=== PATIENT | female | born 1960 | race Caucasian/White ===

== ENCOUNTER 2020-10-25 09:57 | Outpatient (REF) | payer OTHER, SELFPAY ==
--- NOTE | 2020-10-25 | MM_ITS ---
EXAMINATION: MM SCREENING DIGITAL BREAST TOMOSYNTHESIS, BILATERAL CLINICAL INFORMATION: Screening. Asymptomatic. The lifetime risk of breast cancer based on the Tyrer-Cuzick Model is 11.1%. COMPARISON: Mammography: May 30, 2018 and March 18, 2017 TECHNIQUE: Digital breast tomosynthesis is performed in both the craniocaudal and mediolateral oblique views along with computer-aided detection (CAD). Synthesized 2D images are generated from the tomosynthesis. FINDINGS: The breasts are heterogeneously dense, which may obscure small masses (ACR BI-RADS breast composition Category c). There are no significant masses, abnormal calcifications, or other abnormalities. MM/MM tomosynthesis screening BI IMPRESSION: There are no significant changes from prior study. ASSESSMENT: BI-RADS 1: Negative RECOMMENDATION: Routine annual mammography screening. This patient's information was entered into a reminder system with a target due date for their next mammogram.
== END 2020-10-25 09:58 | disposition home or self-care (01) ==
LOC: HO.MAMMO 09:57
PROVIDERS: PCP Internal Medicine; Visit Provider Internal Medicine
DX: Z12.31 Encounter for screening mammogram for malignant neoplasm of breast (principal)
CPT/HCPCS: 77063; 77067

== ENCOUNTER 2021-03-01 08:43 | Outpatient (REF) | payer OTHER, SELFPAY ==
[2021-03-01 10:23] LABS: Estimated Average Glucose 140 mg/dL; Hemoglobin A1c % 6.5 %
[2021-03-01 10:37] LABS: Alanine Aminotransferase 27 U/L (0-31); Albumin Level 4.4 g/dL (3.5-5.0); Alkaline Phosphatase 61 U/L (39-117); Anion Gap 13 (12-20); Aspartate Amino Transferase 20 U/L (5-31); Bilirubin Total 0.6 mg/dL (0.0-1.0); Blood Urea Nitrogen 14 mg/dL (9-16); Calcium 9.4 mg/dL (8.4-10.2); Carbon Dioxide 28 mmol/L (22-29); Chloride 103 mmol/L (96-108); Cholesterol 203 mg/dL; Estimated Glomerular Filt Rate > 60; Glucose Fasting 147 mg/dL (60-99); HDL Cholesterol 61 mg/dL; LDL Cholesterol Calculated 104 mg/dl; Potassium 4.5 mmol/L (3.3-5.1); Sodium 139 mmol/L (135-145); Total Protein 7.1 g/dL (6.5-8.0); Triglycerides 191 mg/dL
[2021-03-01 11:16] LABS: Creatinine Urine 89.81 mg/dL; Microalbumin Urine < 5.0 mg/L
== END 2021-03-01 08:44 | disposition home or self-care (01) ==
LOC: HO.LAB 08:43
PROVIDERS: PCP Internal Medicine; Visit Provider Internal Medicine
DX: Z00.00 Encounter for general adult medical examination without abnormal findings (principal); E03.9 Hypothyroidism, unspecified; E11.9 Type 2 diabetes mellitus without complications
CPT/HCPCS: 36415; 80053; 80061; 82043; 83036

== ENCOUNTER 2021-06-07 08:07 | Outpatient (REF) | payer OTHER, SELFPAY ==
[2021-06-07 12:00] LABS: Alanine Aminotransferase 24 U/L (0-31); Albumin Level 4.1 g/dL (3.5-5.0); Alkaline Phosphatase 80 U/L (39-117); Anion Gap 13 (12-20); Aspartate Amino Transferase 19 U/L (5-31); Bilirubin Total 0.6 mg/dL (0.0-1.0); Blood Urea Nitrogen 12 mg/dL (9-16); Calcium 9.2 mg/dL (8.4-10.2); Carbon Dioxide 24 mmol/L (22-29); Chloride 107 mmol/L (96-108); Cholesterol 203 mg/dL; Estimated Glomerular Filt Rate > 60; Glucose Fasting 163 mg/dL (60-99); HDL Cholesterol 51 mg/dL; LDL Cholesterol Calculated 110 mg/dl; Potassium 4.4 mmol/L (3.3-5.1); Rheumatoid Factor < 15.0 IU/mL (<15.0); Sodium 140 mmol/L (135-145); Total Protein 6.8 g/dL (6.5-8.0); Triglycerides 213 mg/dL
[2021-06-07 12:22] LABS: TSH reflex Free T4 0.03 uIU/mL (0.32-4.0); Vitamin D 25-OH Total 27.5 ng/mL (>30)
[2021-06-07 12:25] LABS: Estimated Average Glucose 160 mg/dL; Hemoglobin A1c % 7.2 %
[2021-06-07 12:57] LABS: Free T4 (Free Thyroxine) 1.21 ng/dL (0.71-1.85)
[2021-06-07 12:58] LABS: Erythrocyte Sedimentation Rate 7 MM/HR (0-20)
[2021-06-09 10:02] LABS: Folate 15.6 ng/mL (> or = 4.0); Vitamin B12 843 pg/mL (200-900)
[2021-06-09 16:12] LABS: Cyclic Citrullinated Peptide <16 UNITS
== END 2021-06-07 08:08 | disposition home or self-care (01) ==
LOC: HO.HMGCLDS 08:07
PROVIDERS: PCP Internal Medicine; Visit Provider Internal Medicine
DX: E03.9 Hypothyroidism, unspecified (principal); E11.9 Type 2 diabetes mellitus without complications; E78.5 Hyperlipidemia, unspecified
CPT/HCPCS: 36415; 80053; 80061; 82306; 82607; 82746; 83036; 84439; 84443; 85652; 86200; 86431

== ENCOUNTER 2021-06-20 13:13 | Outpatient (REF) | payer OTHER, SELFPAY ==
[2021-06-24 18:51] LABS: HPV mRNA E6/E7 Detected (Not Detected)
== END 2021-06-20 13:14 | disposition home or self-care (01) ==
LOC: HO.LAB 13:13
PROVIDERS: Visit Provider Internal Medicine
DX: Z12.4 Encounter for screening for malignant neoplasm of cervix (principal); Z11.51 Encounter for screening for human papillomavirus (HPV)
CPT/HCPCS: 87624; 88142

== ENCOUNTER 2021-10-04 08:49 | Outpatient (REF) | payer OTHER, SELFPAY ==
[2021-10-04 11:45] LABS: Estimated Average Glucose 163 mg/dL; Hemoglobin A1c % 7.3 %
[2021-10-04 11:51] LABS: Alanine Aminotransferase 30 U/L (0-31); Albumin Level 4.2 g/dL (3.5-5.0); Alkaline Phosphatase 77 U/L (39-117); Anion Gap 14 (12-20); Aspartate Amino Transferase 20 U/L (5-31); Bilirubin Total 0.5 mg/dL (0.0-1.0); Blood Urea Nitrogen 12 mg/dL (9-16); Calcium 9.2 mg/dL (8.4-10.2); Carbon Dioxide 23 mmol/L (22-29); Chloride 106 mmol/L (96-108); Cholesterol 202 mg/dL; Estimated Glomerular Filt Rate > 60; Glucose Fasting 170 mg/dL (60-99); HDL Cholesterol 54 mg/dL; LDL Cholesterol Calculated 108 mg/dl; Potassium 4.4 mmol/L (3.3-5.1); Sodium 139 mmol/L (135-145); Triglycerides 203 mg/dL
[2021-10-04 12:47] LABS: Free T4 (Free Thyroxine) 1.13 ng/dL (0.71-1.85)
== END 2021-10-04 08:50 | disposition home or self-care (01) ==
LOC: HO.HMGCLDS 08:49
PROVIDERS: PCP Internal Medicine; Visit Provider Internal Medicine
DX: Z00.00 Encounter for general adult medical examination without abnormal findings (principal); E11.9 Type 2 diabetes mellitus without complications; E78.5 Hyperlipidemia, unspecified; M25.50 Pain in unspecified joint; E03.9 Hypothyroidism, unspecified
CPT/HCPCS: 36415; 80053; 80061; 83036; 84439; 84443

== ENCOUNTER 2021-10-10 15:20 | Outpatient (REF) | payer OTHER, SELFPAY ==
--- NOTE | ~2021-10-10 | XR_ITS ---
EXAMINATION: XR CHEST CLINICAL INFORMATION: R07.89 - Other chest pain COMPARISON: None TECHNIQUE: 2 views of the chest were obtained. FINDINGS: There is fine linear scarring versus subsegmental disc atelectasis left posterior lateral base. The lungs otherwise clear. There is no lobar or segmental airspace consolidation or groundglass opacity or effusion. The costophrenic sulci are clear. The heart is normal in size. There is accentuated ascending aortic contour which could be related to tortuous aorta or aneurysmal enlargement. The hilar contours are normal. Bony structures are unremarkable. XR/XR chest 2V IMPRESSION: 1. Prominent ascending aortic contour which may be related to tortuosity or aneurysmal enlargement. 2. Linear scarring versus disc atelectasis left posterior lateral base.
== END 2021-10-10 15:21 | disposition home or self-care (01) ==
LOC: HO.HMGCX 15:20
PROVIDERS: PCP Internal Medicine; Visit Provider Internal Medicine
DX: R07.89 Other chest pain (principal)
CPT/HCPCS: 71046

== ENCOUNTER 2021-11-26 11:02 | Outpatient (REF) | payer OTHER, SELFPAY ==
--- NOTE | ~2021-11-26 | MM_ITS ---
EXAMINATION: MM SCREENING DIGITAL BREAST TOMOSYNTHESIS, BILATERAL CLINICAL INFORMATION: Screening. Asymptomatic. The lifetime risk of breast cancer based on the Tyrer-Cuzick Model is 6%. COMPARISON: Mammography: 10/25/2020, 05/30/2018, 03/18/2017 TECHNIQUE: Digital breast tomosynthesis is performed in both the craniocaudal and mediolateral oblique views along with computer-aided detection (CAD). Synthesized 2D images are generated from the tomosynthesis. FINDINGS: The breasts are heterogeneously dense, which may obscure small masses (ACR BI-RADS breast composition Category c). Parenchymal pattern is similar to prior studies. Breast tissue composition borders on average fibroglandular. There is no developing density or architectural abnormality. There is biopsy clip marker adjacent to stable nodule asymmetry anterior 1:00 left breast. The axilla and skin contours are unremarkable. No significant changes. MM/MM tomosynthesis screening BI IMPRESSION: No mammographic evidence of malignancy. ASSESSMENT: BI-RADS 2: Benign RECOMMENDATION: Routine annual mammography screening. This patient's information was entered into a reminder system with a target due date for their next mammogram.
== END 2021-11-26 11:03 | disposition home or self-care (01) ==
LOC: HO.MAMMO 11:02
PROVIDERS: Visit Provider Internal Medicine
DX: Z12.31 Encounter for screening mammogram for malignant neoplasm of breast (principal)
CPT/HCPCS: 77063; 77067

== ENCOUNTER → 2021-12-03 10:07 | Outpatient (REF) | payer OTHER, SELFPAY ==
--- NOTE | 2021-12-03 10:10 | CA_ITS ---
Acquisition Time: 2021-12-03 11:15:37 Total Exercise Time: 00:02:00 Test Indications: chest tightness Medications: Protocol: GLORIA Max HR: 126 BPM 78% of Pred: 161 BPM Max BP: 140/074 mmHG Max Work Load: 4.6 METS Exercise stress test with exercise 2 min of Gloria protocol, briefly achieving 78% MPHR, with mod to severe shortness of breath and increase in her baseline anterior chest pressure with request to stop exercise, without arrythmia, with normotensive response to exercise, with nondiagnostic EKG for ischemia due to suboptimal heart rate. In recovery her symptoms quickly improved, and her cest pressure returned to her baseline mild. Test reviewed with Dr Mcqueen. Msg sent to Dr James with results and recommendation for pharmacological nuclear stress test. Referred By: Catherine James Overread By: RAYMUNDO SALINAS
== END ==
LOC: HO.CARD 10:07
PROVIDERS: PCP Internal Medicine; Visit Provider Internal Medicine
DX: R07.89 Other chest pain (principal)
CPT/HCPCS: 93017

== ENCOUNTER → 2021-12-05 07:16 | Outpatient (REF) | payer OTHER, SELFPAY ==
--- NOTE | 2021-12-05 07:19 | CA_ITS ---
Transthoracic Echocardiogram Patient (Last, First, Middle): Vera Forbes, Gender: Female Date of : 1960 Age: 61 Procedure Date: 12/05/2021 Procedure Type: Transthoracic Echocardiogram Location: OP Height: 160.02 cm Weight: 74.84 kg BSA: 1.78 m2 Heart Rate: bpm BP: 138 / 80 mmHg Manager [employer]: [employer] Referring MD: Catherine James MD Symptoms: R07.89 - Other chest pain Study Quality: Good ECG Rhythm: Sinus Conclusions: - The left ventricular systolic function is normal. The calculated ejection fraction is 68% by biplane method. - There is mild calcification of the aortic valve. - There is mild dilatation of the aortic arch measuring 3.50 cm. Findings Left Ventricle Normal left ventricular cavity size. There is normal left ventricular wall thickness. The left ventricular systolic function is normal. The calculated ejection fraction is 68% by biplane method. There is no evidence of regional wall motion abnormalities. Diastolic function is normal for age. Right Ventricle Normal right ventricular cavity size and systolic function. Atria Both atria are normal in size. Aortic Valve There is a normal trileaflet aortic valve. There is mild calcification of the aortic valve. There is no aortic valve stenosis. There is no aortic valve regurgitation. Mitral Valve The mitral valve appears normal. There is trace mitral valve regurgitation. There is no mitral valve stenosis. Pulmonic Valve The pulmonic valve was not well visualized. Tricuspid Valve Normal tricuspid valve structure. There is trace tricuspid valve regurgitation. The pulmonary artery systolic pressure is normal. Great Vessels The aorta was not well visualized. The asc aorta is normal in size. There is mild dilatation of the aortic arch measuring 3.50 cm. Venous The inferior vena cava is normal in size and collapses greater than 50% with inspiration. Pericardium/Pleural There is a trivial pericardial effusion. Prior Study Comparison No prior study available for comparison. Measurements 2D Linear Measurements IVSd: 1.17 0.6-0.9/0.6-1.0 cm LVIDd: 4.48 3.9-5.3/4.2-5.9 cm LVIDd Index: 2.52 2.4-3.2/2.2-3.1 cm/m2 LVIDs: 2.69 2.0-3.6 cm LVPWd: 1.03 0.7-1.1 cm Ao Root: 2.70 2.1-3.5 cm LA Diam: 3.90 2.7-3.8/3.0-4.0 cm LAIDs Index: 2.19 1.5-2.3 cm/m2 LV Mass: 216.49 67-162/88-224 g LV Mass Index: 121.62 43-95/49-115 g/m2 LVOT Diam: 2.10 3.0+(-)1.3 cm 2D Systolic Function EF 4C: 68.40 >55% EF 2C: 66.40 >55% EF BiP: 68.20 >55% Mitral Valve MV Pk E: 0.85 MV PK A: 0.82 MV Decel Time: 198.00 E/A: 1.00 E'Lateral: 7.51 E'Medial: 6.09 E/E' Med: 14.00 E/E' Lat: 11.40 PHT: 58.00 MVA PHT: 3.79 Decel [place]: 4.30 Aortic Valve AoV Pk Sim: 1.75 AoV Pk Grad: 12.00 LVOT LVOT Pk Sim: 1.13 LVOT Mn Sim: 0.77 LVOT VTI: 0.26 LVOT Pk Grad: 5.00 LVOT Mn Grad: 3.00 LVOT Diam: 2.10 LVOT Area: 3.46 Diastolic Function MV Pk E: 0.85 MV Pk A: 0.82 E/A: 1.00 E'Medial: 6.09 E/E' Med: 14.00 E' Laterial: 7.51 E/E' Lat: 11.40 Right Ventricle TAPSE (mm): 2.32 TVS' Sim: 17.50 Tricuspid Valve TR Pk Sim: 2.61 TR Pk Grad: 27.00 RA Press: 3.00 RVSP: 30.00 Great Vessels Aorta Ao Root-2D: 2.70 2.0-3.7 cm Ao Asc: 3.30 2.1-3.4 cm Ao Arch: 3.50 Updated in Other Vendor System with Status of Final Leno Mcqueen MD electronically signed on 12/06/2021 1:41:18 PM with status of Final
== END ==
LOC: HO.CARD 07:16
PROVIDERS: PCP Internal Medicine; Visit Provider Internal Medicine
DX: R07.89 Other chest pain (principal); R06.00 Dyspnea, unspecified
CPT/HCPCS: 93306

== ENCOUNTER 2022-01-10 07:24 | Outpatient (REF) | payer OTHER, SELFPAY ==
[2022-01-10 11:21] LABS: Estimated Average Glucose 143 mg/dL; Hemoglobin A1c % 6.6 %
[2022-01-10 11:23] LABS: Alanine Aminotransferase 19 U/L (0-31); Alkaline Phosphatase 63 U/L (39-117); Anion Gap 12 (12-20); Aspartate Amino Transferase 17 U/L (5-31); Bilirubin Total 0.5 mg/dL (0.0-1.0); Blood Urea Nitrogen 18 mg/dL (9-16); Calcium 8.9 mg/dL (8.4-10.2); Carbon Dioxide 24 mmol/L (22-29); Chloride 108 mmol/L (96-108); Cholesterol 178 mg/dL; Estimated Glomerular Filt Rate > 60; Glucose Fasting 146 mg/dL (60-99); HDL Cholesterol 44 mg/dL; LDL Cholesterol Calculated 103 mg/dl; Potassium 4.2 mmol/L (3.3-5.1); Sodium 140 mmol/L (135-145); Total Protein 6.6 g/dL (6.5-8.0); Triglycerides 158 mg/dL
[2022-01-10 11:35] LABS: Creatinine Urine 71.28 mg/dL
[2022-01-10 11:48] LABS: TSH reflex Free T4 0.32 uIU/mL (0.32-4.0)
== END 2022-01-10 07:25 | disposition home or self-care (01) ==
LOC: HO.HMGCLDS 07:24
PROVIDERS: Visit Provider Internal Medicine
DX: E11.9 Type 2 diabetes mellitus without complications (principal); E03.9 Hypothyroidism, unspecified; E78.5 Hyperlipidemia, unspecified
CPT/HCPCS: 36415; 80053; 80061; 82043; 83036; 84443

== ENCOUNTER 2022-01-20 16:02 | Outpatient (REF) | payer OTHER, SELFPAY ==
--- NOTE | 2022-01-20 | PFT_ITS ---
FLOWS: FEV1 101% of predicted at 2.71 L. FVC 105% of predicted at 3.61 L. FEV1 to FVC ratio of 0.75. No bronchodilator response except in small to medium airways. LUNG VOLUMES: Total lung capacity 110% of predicted at 5.76 L. Residual volume 106% of predicted at 2.16 L. Slow vital capacity 113% of predicted at 3.60 L. Expiratory reserve volume 37% of predicted at 0.35 L. Diffusion capacity is mildly decreased. IMPRESSION: No obstructive or restrictive ventilatory defect. No bronchodilator response except in small to medium airways. Decreased diffusion capacity suggests emphysema. MD SOCORRO Ruffin/MODL / [id number]
== END 2022-01-20 16:03 | disposition home or self-care (01) ==
LOC: HO.RESP 16:02
PROVIDERS: PCP Internal Medicine; Visit Provider Internal Medicine
DX: J45.909 Unspecified asthma, uncomplicated (principal)
CPT/HCPCS: 94060; 94727; 94729

== ENCOUNTER 2022-04-04 08:45 | Outpatient (REF) | payer OTHER, SELFPAY ==
[2022-04-04 11:25] LABS: Estimated Average Glucose 160 mg/dL; Hemoglobin A1c % 7.2 %
[2022-04-04 11:32] LABS: Alanine Aminotransferase 23 U/L (0-31); Albumin Level 4.1 g/dL (3.5-5.0); Alkaline Phosphatase 65 U/L (39-117); Anion Gap 14 (12-20); Aspartate Amino Transferase 15 U/L (5-31); Bilirubin Total 0.6 mg/dL (0.0-1.0); Blood Urea Nitrogen 20 mg/dL (9-16); Calcium 9.3 mg/dL (8.4-10.2); Carbon Dioxide 21 mmol/L (22-29); Chloride 108 mmol/L (96-108); Cholesterol 227 mg/dL; Estimated Glomerular Filt Rate > 60; Glucose Fasting 157 mg/dL (60-99); HDL Cholesterol 56 mg/dL; LDL Cholesterol Calculated 131 mg/dl; Potassium 4.4 mmol/L (3.3-5.1); Sodium 139 mmol/L (135-145); Total Protein 6.8 g/dL (6.5-8.0); Triglycerides 202 mg/dL
[2022-04-04 11:34] LABS: Creatinine Urine 64.17 mg/dL; Microalbumin Urine < 5.0 mg/L
== END 2022-04-04 08:46 | disposition home or self-care (01) ==
LOC: HO.HMGCLDS 08:45
PROVIDERS: Visit Provider Internal Medicine
DX: E11.9 Type 2 diabetes mellitus without complications (principal); E78.5 Hyperlipidemia, unspecified; E03.9 Hypothyroidism, unspecified
CPT/HCPCS: 36415; 80053; 80061; 82043; 83036

== ENCOUNTER 2022-07-04 08:39 | Outpatient (REF) | payer OTHER, SELFPAY ==
[2022-07-04 11:35] LABS: Creatinine Urine 74.52 mg/dL; Microalbum/Creatinine Ratio Ur 9.3 ug/mg cr
[2022-07-04 11:39] LABS: Alanine Aminotransferase 25 U/L (0-31); Albumin Level 4.5 g/dL (3.5-5.0); Alkaline Phosphatase 64 U/L (39-117); Anion Gap 15 (12-20); Aspartate Amino Transferase 20 U/L (5-31); Bilirubin Total 0.5 mg/dL (0.0-1.0); Blood Urea Nitrogen 20 mg/dL (9-16); Calcium 9.1 mg/dL (8.4-10.2); Carbon Dioxide 22 mmol/L (22-29); Chloride 108 mmol/L (96-108); Cholesterol 200 mg/dL; Estimated Glomerular Filt Rate > 60; Glucose Fasting 139 mg/dL (60-99); HDL Cholesterol 56 mg/dL; LDL Cholesterol Calculated 120 mg/dl; Potassium 4.8 mmol/L (3.3-5.1); Sodium 140 mmol/L (135-145); Total Protein 7.2 g/dL (6.5-8.0); Triglycerides 121 mg/dL
[2022-07-04 11:45] LABS: Estimated Average Glucose 137 mg/dL; Hemoglobin A1c % 6.4 %
== END 2022-07-04 08:40 | disposition home or self-care (01) ==
LOC: HO.HMGCLDS 08:39
PROVIDERS: PCP Internal Medicine; Visit Provider Internal Medicine
DX: E11.9 Type 2 diabetes mellitus without complications (principal); E78.5 Hyperlipidemia, unspecified; E03.9 Hypothyroidism, unspecified
CPT/HCPCS: 36415; 80053; 80061; 82043; 83036

== ENCOUNTER 2022-11-27 11:57 | Outpatient (REF) | payer OTHER, SELFPAY ==
--- NOTE | ~2022-11-27 | MM_ITS ---
EXAMINATION: MM SCREENING DIGITAL BREAST TOMOSYNTHESIS, BILATERAL CLINICAL INFORMATION: Screening. Asymptomatic. The lifetime risk of breast cancer based on the Tyrer-Cuzick Model is 12%. COMPARISON: Mammography: 11/26/2021, 10/25/2020, 05/30/2018, 03/18/2017; outside mammography 11/01/2015, 10/28/2015 ([facility]). TECHNIQUE: Digital breast tomosynthesis is performed in both the craniocaudal and mediolateral oblique views along with computer-aided detection (CAD). Synthesized 2D images are generated from the tomosynthesis. FINDINGS: The breasts are heterogeneously dense, which may obscure small masses (ACR BI-RADS breast composition Category c). There are no significant masses, abnormal calcifications, or other abnormalities. Scattered minor fibroglandular asymmetries are stable. Parenchymal pattern is similar to prior exams. No developing density. No interval architectural abnormality. Biopsy clip marker again noted anterior 1:00 left breast. The axilla are unremarkable. Skin contours are smooth. MM/MM tomosynthesis screening BI IMPRESSION: No mammographic evidence of malignancy. ASSESSMENT: BI-RADS 2: Benign RECOMMENDATION: Routine annual mammography screening. This patient's information was entered into a reminder system with a target due date for their next mammogram.
== END 2022-11-27 11:58 | disposition home or self-care (01) ==
LOC: HO.MAMMO 11:57
PROVIDERS: Visit Provider Internal Medicine
DX: Z12.31 Encounter for screening mammogram for malignant neoplasm of breast (principal)
CPT/HCPCS: 77063; 77067

== ENCOUNTER 2022-12-05 08:39 | Outpatient (REF) | payer OTHER, SELFPAY ==
[2022-12-05 11:40] LABS: Estimated Average Glucose 143 mg/dL; Hemoglobin A1c % 6.6 %
[2022-12-05 11:45] LABS: Alanine Aminotransferase 27 U/L (0-31); Albumin Level 4.3 g/dL (3.5-5.0); Alkaline Phosphatase 68 U/L (39-117); Anion Gap 9 (12-20); Aspartate Amino Transferase 19 U/L (5-31); Bilirubin Total 0.6 mg/dL (0.0-1.0); Blood Urea Nitrogen 17 mg/dL (9-16); Calcium 9.4 mg/dL (8.4-10.2); Carbon Dioxide 25 mmol/L (22-29); Chloride 112 mmol/L (96-108); Cholesterol 162 mg/dL; Estimated Glomerular Filt Rate > 60; Glucose Fasting 155 mg/dL (60-99); HDL Cholesterol 47 mg/dL; LDL Cholesterol Calculated 89 mg/dl; Potassium 4.1 mmol/L (3.3-5.1); Sodium 142 mmol/L (135-145); Total Protein 6.7 g/dL (6.5-8.0); Triglycerides 132 mg/dL
[2022-12-05 12:03] LABS: TSH reflex Free T4 0.01 uIU/mL (0.32-4.0)
[2022-12-05 13:02] LABS: Free T4 (Free Thyroxine) 1.81 ng/dL (0.71-1.85)
== END 2022-12-05 08:40 | disposition home or self-care (01) ==
LOC: HO.HMGCLDS 08:39
PROVIDERS: PCP Internal Medicine; Visit Provider Internal Medicine
DX: E11.9 Type 2 diabetes mellitus without complications (principal); E78.5 Hyperlipidemia, unspecified
CPT/HCPCS: 36415; 80053; 80061; 83036; 84439; 84443

== ENCOUNTER 2022-12-11 12:57 | Outpatient (REF) | payer OTHER, SELFPAY ==
[2022-12-18 05:13] LABS: HPV mRNA E6/E7 Not Detected (Not Detected)
== END 2022-12-11 12:58 | disposition home or self-care (01) ==
LOC: HO.LNP 12:57
PROVIDERS: Visit Provider Internal Medicine
DX: Z01.419 Encounter for gynecological examination (general) (routine) without abnormal findings (principal); Z11.51 Encounter for screening for human papillomavirus (HPV)
CPT/HCPCS: 87624; 88142

== ENCOUNTER 2022-12-12 13:43 | Outpatient (REF) | payer OTHER, SELFPAY | END 2022-12-12 13:44 | disposition home or self-care (01) | LOC: HO.LNP 13:43 | PROVIDERS: Visit Provider Internal Medicine | DX: Z13.89 Encounter for screening for other disorder (principal) ==

== ENCOUNTER 2022-12-28 07:48 | Outpatient (REF) | payer OTHER, SELFPAY ==
--- NOTE | ~2022-12-28 | CT_ITS ---
EXAMINATION: CT ANGIOGRAM CHEST CLINICAL INFORMATION: Thoracic aortic aneurysm. COMPARISON: Chest x-ray 10/10/2021. TECHNIQUE: Multiple axial images were obtained through the chest after the administration of 70 mL of Omnipaque 350 intravenous contrast. 3D POSTPROCESSING: Multiple 3-D angiographic images were processed from the initial data set by the learning technologist at the modality workstation under concurrent physician supervision. This CT examination was performed using dose optimization techniques as appropriate, variously including the following: *Automated exposure control *Adjustment of mA and/or kV according to patient size (this includes techniques or standardized protocols for targeted exams where dose is matched to indication/reason for exam; i.e. extremities or head) *Use of iterative reconstruction technique DLP: 123 mGy-cm FINDINGS: The ascending aorta measures 3.7 x 3.7 cm. No evidence of dissection. The prominent contour on chest x-ray is related to the aortic contour The aortic arch is normal in caliber. Two-vessel aortic arch. The great vessels are patent. The descending aorta is normal in caliber. The upper, abdominal aorta is normal in caliber. Polygonal perifissural nodules measuring up to 3 mm along the minor fissure are consistent with lymph nodes. Calcific granuloma in the right lower lobe. No suspicious pulmonary nodules. No adenopathy. The upper abdomen is unremarkable. No suspicious osseous lesions. CT/CT angio chest aorta IMPRESSION: The ascending aorta measures 3.7 x 3.7 cm. Negative for aneurysm. Fleischner guidelines were followed.
[2022-12-28] MEDS: iohexoL 350 MG/ML 75 ML INFUS..BTL 70 ML IV (08:36)
== END 2022-12-28 07:49 | disposition home or self-care (01) ==
LOC: HO.CT 07:48
PROVIDERS: Visit Provider Internal Medicine
DX: I71.20 Thoracic aortic aneurysm, without rupture, unspecified (principal)
CPT/HCPCS: 71275; Q9967

== ENCOUNTER 2023-03-06 08:24 | Outpatient (REF) | payer OTHER, SELFPAY ==
[2023-03-06 12:02] LABS: Estimated Average Glucose 120 mg/dL; Hemoglobin A1c % 5.8 %
[2023-03-06 12:09] LABS: Creatinine Urine 108.31 mg/dL; Microalbum/Creatinine Ratio Ur 14.7 ug/mg cr
[2023-03-06 12:14] LABS: Alanine Aminotransferase 32 U/L (0-31); Albumin Level 4.4 g/dL (3.5-5.0); Alkaline Phosphatase 67 U/L (39-117); Anion Gap 12 (12-20); Aspartate Amino Transferase 21 U/L (5-31); Bilirubin Total 0.8 mg/dL (0.0-1.0); Blood Urea Nitrogen 20 mg/dL (9-16); Calcium 9.3 mg/dL (8.4-10.2); Carbon Dioxide 25 mmol/L (22-29); Chloride 109 mmol/L (96-108); Cholesterol 188 mg/dL; Estimated Glomerular Filt Rate > 60; Glucose Fasting 85 mg/dL (60-99); HDL Cholesterol 51 mg/dL; LDL Cholesterol Calculated 112 mg/dl; Potassium 4.4 mmol/L (3.3-5.1); Sodium 142 mmol/L (135-145); Total Protein 6.7 g/dL (6.5-8.0); Triglycerides 129 mg/dL
[2023-03-06 13:33] LABS: Free T4 (Free Thyroxine) 1.33 ng/dL (0.71-1.85)
== END 2023-03-06 08:25 | disposition home or self-care (01) ==
LOC: HO.HMGCLDS 08:24
PROVIDERS: PCP Internal Medicine; Visit Provider Internal Medicine
DX: E03.9 Hypothyroidism, unspecified (principal); E11.9 Type 2 diabetes mellitus without complications; E78.5 Hyperlipidemia, unspecified
CPT/HCPCS: 36415; 80053; 80061; 82043; 83036; 84439; 84443

== ENCOUNTER 2023-08-14 08:57 | Outpatient (REF) | payer OTHER, SELFPAY ==
[2023-08-14 11:34] LABS: MANUAL DIFF FLAG NO
[2023-08-14 11:40] LABS: Basophils Absolute Auto 0.1 X10*3/uL (0.0-0.2); Basophils Percent Auto 0.9 % (0-2); Eosinophils Absolute Auto 0.2 X10*3/uL (0.0-0.4); Eosinophils Percent Auto 4.3 % (0-4); Hemoglobin 14.9 g/dl (12.0-16.0); Lymphocytes Absolute Auto 2.3 X10*3/uL (1.2-4.9); Lymphocytes Percent Auto 40.4 % (20-40); Mean Corpuscular HGB Conc 33.1 g/dl (31.0-35.0); Mean Corpuscular Hemoglobin 28.5 pg (27.0-33.0); Mean Platelet Volume 12.7 fL (9.4-12.3); Monocytes Absolute Auto 0.4 X10*3/uL (0.1-1.2); Monocytes Percent Auto 7.7 % (2-11); Neutrophils Absolute Auto 2.6 x10*3/uL (2.0-8.3); Neutrophils Percent Auto 46.7 % (45-73); Platelet Count 192 X10*3/uL (160-400); Red Blood Count 5.23 X10*6/uL (4.20-5.50); Red Cell Distribution Width 12.5 % (11.0-16.0); White Blood Count 5.6 X10*3/uL (4.8-10.8)
[2023-08-14 12:08] LABS: Alanine Aminotransferase 20 U/L (0-31); Albumin Level 4.2 g/dL (3.5-5.0); Alkaline Phosphatase 58 U/L (39-117); Anion Gap 13 (12-20); Aspartate Amino Transferase 19 U/L (5-31); Bilirubin Total 0.4 mg/dL (0.0-1.0); Blood Urea Nitrogen 17 mg/dL (9-16); Calcium 9.3 mg/dL (8.4-10.2); Carbon Dioxide 23 mmol/L (22-29); Chloride 109 mmol/L (96-108); Cholesterol 174 mg/dL (<200); Estimated Glomerular Filt Rate > 60; Glucose Fasting 92 mg/dL (60-99); HDL Cholesterol 48 mg/dL (>40); LDL Cholesterol Calculated 96 mg/dL (<100); Potassium 3.7 mmol/L (3.3-5.1); Sodium 141 mmol/L (135-145); Total Protein 6.9 g/dL (6.5-8.0); Triglycerides 153 mg/dL (<150)
[2023-08-14 12:14] LABS: TSH reflex Free T4 0.04 uIU/mL (0.32-4.0)
[2023-08-14 12:21] LABS: Creatinine Urine 112.66 mg/dL; Microalbum/Creatinine Ratio Ur 7.9 ug/mg cr (<30)
[2023-08-14 12:27] LABS: Estimated Average Glucose 108 mg/dL; Hemoglobin A1c % 5.4 % (<6.0)
== END 2023-08-14 08:58 | disposition home or self-care (01) ==
LOC: HO.HMGCLDS 08:57
PROVIDERS: PCP Internal Medicine; Visit Provider Internal Medicine
DX: Z00.00 Encounter for general adult medical examination without abnormal findings (principal); E78.5 Hyperlipidemia, unspecified; E11.9 Type 2 diabetes mellitus without complications; E03.9 Hypothyroidism, unspecified
CPT/HCPCS: 36415; 80053; 80061; 82043; 82570; 83036; 84439; 84443; 85025

== ENCOUNTER 2023-08-25 10:11 | Outpatient (AMB) | payer OTHER, SELFPAY ==
[2023-08-25 10:14] VITALS: BP 108/64; PULSE 76; O2SAT 97; BMI 25.3
--- NOTE | 2023-08-25 10:14 | MHC.PC.OV ---
Vital Signs 08/25/23 10:14 Height 5 ft 4.3 in Weight 149 lb BMI 25.3 BP 108/64 Blood Pressure Location Lt brachial Position Sitting Pulse 76 Pulse Source Pulse Oximeter Pulse Oximetry (%) 97 Oxygen Delivery Method Room Air Intake Visit Reasons: 4m follow up Intake Note: Pt is here today for 4 months follow up visit. Allergies fluticasone furoate [From Breo Ellipta] Allergy (Verified 08/25/23 10:18) chest pressure and burning vilanterol [From Breo Ellipta] Allergy (Verified 08/25/23 10:18) chest pressure and burning Tobacco use date assessed: 08/25/23 Dental Screening Dental Screen Date: 08/25/23 Did you have a dental visit in the last 12 months?: Yes Did you have a dental problem in the last 6 months where you did not have access to dental care?: No Was dental information given to patient?: Patient has dentist HPI 4m follow up HPI Details Patient presents for the follow-up of type 2 diabetes hyperlipidemia hypothyroidism. She lost 5 lb on Trulicity. Her daughter in [place] is 6 months . [facility] Medical History Emphysema lung Thoracic aortic aneurysm Asthma Abnormal stress test ZAMBRANO (dyspnea on exertion) Cough Chest tightness Annual physical exam Chest pain Arthralgia Osteopenia History of colon polyps Depression with anxiety Type 2 diabetes mellitus Hyperlipidemia Hypothyroidism Surgical History H/O colonoscopy Family History Father Hypertension Mother Diabetes Liver cancer Maternal Grandmother Diabetes Social History (Updated 08/25/23 @ 10:52 by Catherine James MD) Household Members Other:: single, 3 adult children (2 in [place]) Housing: House Alcohol intake: never Patient Tobacco Use Status: Never used Tobacco e-Cigarette/Vaping Use: Never Used Current occupational status: employed Cognitive needs: No Hearing needs: No Vision needs: Yes Questionnaire PHQ-9 Over the last 2 weeks, how often have you been bothered by any of the following problems? 1. Little interest or pleasure in doing things: not at all 2. Feeling down, depressed, or hopeless: not at all 3. Trouble falling or staying asleep, or sleeping too much: not at all 4. Feeling tired or having little energy: not at all 5. Poor appetite or overeating: not at all 6. Feeling bad about yourself - or that you are a failure or have let yourself or your family down: not at all 7. Trouble concentrating on things, such as reading the newspaper or watching television: not at all 8. Moving or speaking so slowly that other people could have noticed. Or the opposite - being so fidgety or restless that you have been moving around a lot more than usual: not at all 9. Thoughts that you would be better off or of hurting yourself in some way: not at all Total score: 0 Depression Screening Interpretation: Negative Depression Screening Done: Yes Source: Developed by Drs. Hosea Collins, Tricia Samuel, Nate Hale and colleagues, with an educational deisy from [employer]. Thrive Questionnaire Date Thrive assessed: 08/25/23 I am a: Patient What is your living situation today?: I have a steady place to live Within the past 12 months, did the food you bought not last and you didn't have the money to get more?: Never true Within the past 12 months, did you worry whether your food would run out before you got money to buy more?: Never true Do you have trouble paying for medicines?: No Do you have trouble getting transportation to medical appointments?: No Do you have trouble paying your heating and electricity bill?: No Do you have trouble taking care of your child, family member or friend?: No Do you have trouble with day-to-day activities such as bathing, preparing meals, shopping, managing finances, etc.?: No Are you currently unemployed and looking for a job?: No Are you interested in more education?: No Please select the resources that you would like help with: None Currently or been in a relationship where the following occur: no concerns reported AUDIT C Alcohol Use Questionnaire (AUDIT-C) 1. How often do you have a drink containing alcohol?: Never 3. How often do you have six or more drinks on one occasion?: Never Total Score: 0 VARUN-7 AMB Questionnaire VARUN-7 Date VARUN - 7 assessed: 10/04/23 Feeling nervous, anxious, or on edge: 0 = Not at all Not being able to stop or control worryin = Not at all Worrying too much about different things: 0 = Not at all Trouble relaxin = Not at all Being so restless that it is hard to sit still: 0 = Not at all Becoming easily annoyed or irritable: 0 = Not at all Feeling afraid as if something awful might happen: 0 = Not at all Total VARUN-7 score (0-4 normal; 5-9 mild; 10-14 moderate; 15-21 severe): 0 Source: Developed by Drs. Hosea Collins, Tricia Samuel, Nate Hale and colleagues, with an educational deisy from [employer]. Review of Systems Const All systems reviewed & are unremarkable except as noted in HPI and below Reports no additional complaints Eyes Reports no additional complaints ENT Reports no additional complaints Card Reports no additional complaints Resp Reports no additional complaints GI Reports no additional complaints Physical exam (Primary Care) Vital Signs: Last Vital Signs Pulse 76 08/25/23 10:14 BP 108/64 08/25/23 10:14 Pulse Ox 97 08/25/23 10:14 Oxygen Delivery Method Room Air 08/25/23 10:14 BMI result Body Mass Index 25.3 Tobacco/Smoking Status: Tobacco use Status Tobacco use date assessed 08/25/23 08/25/23 10:20 Patient Tobacco Use Status Never used Tobacco 08/25/23 10:20 e-Cigarette/Vaping Use Never Used 08/25/23 10:20 PHQ-9: PHQ-9 Score PHQ-9: Total score 0 08/25/23 10:20 Depression Screening Interpretation: Negative Thrive Assessment: Date of Thrive Assessment Date Thrive assessed 08/25/23 08/25/23 10:20 Currently or been in a relationship where the following occur: no concerns reported Const General: no acute distress HENMT Face and sinus: Yes normal facial exam Eyes General: appearance normal, both eyes and all related structures Neck Neck: Yes supple Resp Effort & Inspection: normal respiratory effort Auscultation: clear to auscultation bilaterally Cardio Rhythm: regular rhythm Heart sounds: S1 normal heart sound present and S2 normal heart sound present GI Inspection: Yes normal to inspection Assessment and Plan Assessment & Plan (1) Type 2 diabetes mellitus: Code(s): E11.9 - Type 2 diabetes mellitus without complications Plan: A1c is 5.4, continue ADA diet regular exercise and current medications. Patient is contemplating stopping Trulicity because of weight loss (2) Hypothyroidism: Code(s): E03.9 - Hypothyroidism, unspecified Plan: Decrease levothyroxine to 100 mcg check TSH and free T4 in 2 and 6 months (3) Hyperlipidemia: Code(s): E78.5 - Hyperlipidemia, unspecified Plan: Continue Crestor. Return for physical in 6 months Orders: Orders Complete Blood Count Auto Diff 6 Months E03.9 - Hypothyroidism, unspecified, E11.9 - Type 2 diabetes mellitus without complications, E78.5 - Hyperlipidemia, unspecified Hemoglobin A1c 6 Months E03.9 - Hypothyroidism, unspecified, E11.9 - Type 2 diabetes mellitus without complications, E78.5 - Hyperlipidemia, unspecified TSH reflex Free T4 2 Months E03.9 - Hypothyroidism, unspecified Comprehensive [place]. Panel Fast 6 Months E03.9 - Hypothyroidism, unspecified, E11.9 - Type 2 diabetes mellitus without complications, E78.5 - Hyperlipidemia, unspecified Lipid Panel 6 Months E03.9 - Hypothyroidism, unspecified, E11.9 - Type 2 diabetes mellitus without complications, E78.5 - Hyperlipidemia, unspecified TSH reflex Free T4 6 Months E03.9 - Hypothyroidism, unspecified Medications: New levothyroxine 100 mcg PO DAILY 90 tabs 1RF Refilled blood sugar diagnostic (FreeStyle Lite Strips) QD 100 ea 3RF Discontinued levothyroxine Discontinued Reason: Doctor's Order 112 mcg PO DAILY 90 tabs 3RF Coding Level of Care Code Est Pt Level 4 (91653) Diagnoses Type 2 diabetes mellitus E11.9 Hypothyroidism E03.9 Hyperlipidemia E78.5
== END 2023-08-25 10:58 | disposition home or self-care (01) ==
PROVIDERS: PCP Internal Medicine; Visit Provider Internal Medicine
DX: E11.9 Type 2 diabetes mellitus without complications (principal); E03.9 Hypothyroidism, unspecified; E78.5 Hyperlipidemia, unspecified
CPT/HCPCS: 99214

== ENCOUNTER 2023-10-30 08:52 | Outpatient (REF) | payer OTHER, SELFPAY ==
[2023-10-30 11:31] LABS: TSH reflex Free T4 0.25 uIU/mL (0.32-4.0)
[2023-10-30 12:09] LABS: Free T4 (Free Thyroxine) 0.97 ng/dL (0.71-1.85)
== END 2023-10-30 08:53 | disposition home or self-care (01) ==
LOC: HO.HMGCLDS 08:52
PROVIDERS: PCP Internal Medicine; Visit Provider Internal Medicine
DX: E03.9 Hypothyroidism, unspecified (principal)
CPT/HCPCS: 36415; 84439; 84443

== ENCOUNTER 2023-12-03 11:49 | Outpatient (REF) | payer OTHER, SELFPAY ==
--- NOTE | ~2023-12-03 | MM_ITS ---
EXAMINATION: MM SCREENING DIGITAL BREAST TOMOSYNTHESIS, BILATERAL CLINICAL INFORMATION: Screening. Asymptomatic. COMPARISON: Mammography: This study is compared with prior exams dating back to 2019. TECHNIQUE: Digital breast tomosynthesis is performed in both the craniocaudal and mediolateral oblique views along with computer-aided detection (CAD). Synthesized 2D images are generated from the tomosynthesis. FINDINGS: The breasts are heterogeneously dense, which may obscure small masses (ACR BI-RADS breast composition Category c). There are no significant masses, abnormal calcifications, or other abnormalities. There is a tissue marker present in the upper outer quadrant of the left breast from prior benign percutaneous biopsy. MM/MM tomosynthesis screening BI IMPRESSION: No mammographic evidence of malignancy. ASSESSMENT: BI-RADS BI-RADS 2 - Benign Findings RECOMMENDATION: Routine annual mammography screening. 1 year F/U This examination should not preclude the clinical evaluation of a suspicious palpable abnormality. This patient's information was entered into a reminder system with a target due date for their next mammogram.
== END 2023-12-03 11:50 | disposition home or self-care (01) ==
LOC: HO.MAMMO 11:49
PROVIDERS: PCP Internal Medicine; Visit Provider Internal Medicine
DX: Z12.31 Encounter for screening mammogram for malignant neoplasm of breast (principal)
CPT/HCPCS: 77063; 77067

== ENCOUNTER → 2023-12-03 12:00 | Outpatient (BNV) | payer OTHER, SELFPAY | PROVIDERS: PCP Internal Medicine; Visit Provider Radiology Diagnostic Radiology | DX: Z12.31 Encounter for screening mammogram for malignant neoplasm of breast (principal) | CPT/HCPCS: 77063; 77067 ==

== ENCOUNTER 2023-12-18 09:14 | Outpatient (REF) | payer OTHER, SELFPAY ==
[2023-12-18 11:29] LABS: Appearance Urine Clear; Color Urine Yellow; Glucose Urine UA >=1000 mg/dL (Negative); Leukocyte Esterase Urine Negative (Negative); Nitrite Urine Negative (Negative); PH 5.5 (5.0-9.0); Specific Gravity - Urine >= 1.030 (1.005-1.025); UMIC TRIGGER UACC YES; Urine Blood Negative (Negative); Urine Ketones Negative (Negative); Urine Protein Negative (Neg-Trace)
[2023-12-18 11:35] LABS: Bacteria Urine None Seen (None Seen); Hyaline Casts Urine 0-2 /LPF (0-2); RBC Urine 0-2 /HPF (0-2); Squamous Epithelial Cell Urine 0-2 /HPF (0-2); WBC Urine 0-5 /HPF (0-5)
== END 2023-12-18 09:15 | disposition home or self-care (01) ==
LOC: HO.HMGCLDS 09:14
PROVIDERS: PCP Internal Medicine; Visit Provider Internal Medicine
DX: R30.0 Dysuria (principal)
CPT/HCPCS: 81001

== ENCOUNTER 2023-12-21 14:15 | Outpatient (AMB) | payer OTHER, SELFPAY ==
--- NOTE | 2023-12-21 14:30 | A.OFFPC_ITS ---
Vital Signs 12/21/23 14:33 Height 5 ft 4.3 in Weight 162 lb BMI 27.5 BP 120/74 Blood Pressure Location Lt brachial Position Sitting Pulse 85 Pulse Source Pulse Oximeter Pulse Oximetry (%) 96 Oxygen Delivery Method Room Air Intake Visit Reasons: Lower abdominal pain Intake Note: Pt is here today for a sick visit. Pt c/o lower abdominal pain. Pt states that she also has a lot of pressure in her lower abdomen. She had urine test done which was normal. Allergies fluticasone furoate [From Breo Ellipta] Allergy (Verified 12/21/23 14:37) chest pressure and burning vilanterol [From Breo Ellipta] Allergy (Verified 12/21/23 14:37) chest pressure and burning Tobacco use date assessed: 12/21/23 Dental Screening Dental Screen Date: 12/21/23 Did you have a dental visit in the last 12 months?: Yes Did you have a dental problem in the last 6 months where you did not have access to dental care?: No Was dental information given to patient?: Patient has dentist HPI Lower abdominal pain HPI Details Pt presents for f/u lower abd pain for 2 days last week which resolved. UA was negative for UTI. Patient complains of sore throat nasal congestion headache and dry cough for 2 days. She denies fever chills shortness of breath, dysuria increased urination change in bowel habits, hematochezia melena PFSH Medical History Emphysema lung Thoracic aortic aneurysm Asthma Abnormal stress test ZAMBRANO (dyspnea on exertion) Cough Chest tightness Annual physical exam Chest pain Arthralgia Osteopenia History of colon polyps Depression with anxiety Type 2 diabetes mellitus Hyperlipidemia Hypothyroidism Surgical History H/O colonoscopy Family History Father Hypertension Mother Diabetes Liver cancer Maternal Grandmother Diabetes Social History Household Members Other:: single, 3 adult children (2 in [place]) Housing: House Alcohol intake: never Patient Tobacco Use Status: Never used Tobacco e-Cigarette/Vaping Use: Never Used Current occupational status: employed Cognitive needs: No Hearing needs: No Vision needs: Yes Questionnaire Thrive Questionnaire Date Thrive assessed: 08/25/23 AUDIT C Alcohol Use Questionnaire (AUDIT-C) 1. How often do you have a drink containing alcohol?: Never 3. How often do you have six or more drinks on one occasion?: Never Total Score: 0 VARUN-7 AMB Questionnaire VARUN-7 Date VARUN - 7 assessed: 08/25/23 Source: Developed by Drs. Hosea Collins, Tricia Samuel, Nate Hale and colleagues, with an educational deisy from [employer]. Review of Systems Const All systems reviewed & are unremarkable except as noted in HPI and below Reports no additional complaints Eyes Reports no additional complaints ENT Reports no additional complaints Card Reports no additional complaints Resp Reports no additional complaints GI Reports no additional complaints Physical exam (Primary Care) Vital Signs: Last Vital Signs Pulse 85 12/21/23 14:33 BP 120/74 12/21/23 14:33 Pulse Ox 96 12/21/23 14:33 Oxygen Delivery Method Room Air 12/21/23 14:33 BMI result Body Mass Index 27.5 Tobacco/Smoking Status: Tobacco use Status Tobacco use date assessed 12/21/23 12/21/23 14:38 Patient Tobacco Use Status Never used Tobacco 12/21/23 14:38 e-Cigarette/Vaping Use Never Used 12/21/23 14:31 Thrive Assessment: Date of Thrive Assessment Date Thrive assessed 08/25/23 12/21/23 14:31 Const General: no acute distress HENMT Head: Yes normal to inspection Ears: TM's normal bilaterally General nose exam: Normal external nose present Face and sinus: No sinus tenderness Throat: Yes posterior oropharynx abnormal (erythema) and Yes postnasal drainage Eyes General: appearance normal, both eyes and all related structures Neck Neck: Yes supple Resp Effort & Inspection: normal respiratory effort Auscultation: clear to auscultation bilaterally Cardio Rhythm: regular rhythm Heart sounds: S1 normal heart sound present and S2 normal heart sound present GI Inspection: Yes normal to inspection Palpation (GI): Soft to palpation Percussion: Yes normal to percussion Auscultation: normal bowel sounds Assessment and Plan Assessment & Plan (1) URI (upper respiratory infection): Code(s): J06.9 - Acute upper respiratory infection, unspecified Plan: Supportive care discussed with the patient Coding Level of Care Code Est Pt Level 3 (89432) Diagnoses URI (upper respiratory infection) J06.9
[2023-12-21 14:33] VITALS: BP 120/74; PULSE 85; O2SAT 96; BMI 27.5
== END 2023-12-21 15:01 | disposition home or self-care (01) ==
PROVIDERS: PCP Internal Medicine; Visit Provider Internal Medicine
DX: J06.9 Acute upper respiratory infection, unspecified (principal)
CPT/HCPCS: 99213

== ENCOUNTER 2023-12-21 15:01 | Outpatient (REF) | payer OTHER, SELFPAY ==
[2023-12-21 19:52] LABS: Influenza A PCR NEGATIVE (Negative); Influenza B PCR NEGATIVE (Negative); Resp Syncy Virus RNA Qual PCR NEGATIVE (Negative); SARS COV2 PCR INHOUSE POSITIVE (Negative)
== END 2023-12-21 15:02 | disposition home or self-care (01) ==
LOC: HO.LAB 15:01
PROVIDERS: Visit Provider Internal Medicine
DX: Z11.52 Encounter for screening for COVID-19 (principal); J06.9 Acute upper respiratory infection, unspecified
CPT/HCPCS: 0241U

== ENCOUNTER 2024-01-25 08:05 | Outpatient (AMB) | payer OTHER, SELFPAY ==
--- NOTE | 2024-01-25 08:38 | AM.OFFWIN_ITS ---
Intake Vital Signs 01/25/24 08:39 Height 5 ft 4.3 in Weight 164 lb BMI 27.9 BP 150/80 H Pulse 72 Pulse Source Pulse Oximeter Temp 97.6 F Temp Source Temporal Artery Scan Pulse Oximetry (%) 96 Oxygen Delivery Method Room Air Intake Visit Reasons: EST/rib pain ongoing 1 week (lobby) Intake Note: pt is here today for rib pain started 1 week ago Patient Tobacco Use Status: Never used Tobacco Allergies fluticasone furoate [From Breo Ellipta] Allergy (Verified 01/25/24 08:40) chest pressure and burning vilanterol [From Breo Ellipta] Allergy (Verified 01/25/24 08:40) chest pressure and burning Do you need a note to return to daycare/school/sports/work: No HPI EST/rib pain ongoing 1 week (lobby) HPI Details 63-year-old female presents to the [facility] for a sick visit. Patient only speaks Indonesian and her son is translating. Patient reports sharp pain on the left side of the chest for the past few days. The pain is reproducible when she presses on the rib below her left breast. Does not recall any fall or injury. She has been aggressively cleaning recently. No shortness of breath. [facility] Medical History Emphysema lung Thoracic aortic aneurysm Asthma Abnormal stress test ZAMBRANO (dyspnea on exertion) Cough Chest tightness Annual physical exam Chest pain Arthralgia Osteopenia History of colon polyps Depression with anxiety Type 2 diabetes mellitus Hyperlipidemia Hypothyroidism Surgical History H/O colonoscopy Family History Father Hypertension Mother Diabetes Liver cancer Maternal Grandmother Diabetes Social History Household Members Other:: single, 3 adult children (2 in [place]) Housing: House Alcohol intake: never Patient Tobacco Use Status: Never used Tobacco e-Cigarette/Vaping Use: Never Used Current occupational status: employed Cognitive needs: No Hearing needs: No Vision needs: Yes Physical Exam Vital Signs: Last Vital Signs Temp 97.6 F 01/25/24 08:39 Pulse 72 01/25/24 08:39 BP 150/80 H 01/25/24 08:39 Pulse Ox 96 01/25/24 08:39 Oxygen Delivery Method Room Air 01/25/24 08:39 BMI result Body Mass Index 27.9 Const General: cooperative and healthy appearing Nutritional Appearance: well nourished Orientation/consciousness: patient oriented x3 Limitations: no limitations HEENT Head: Yes normal to inspection Eyes General: appearance normal, both eyes and all related structures Neck Neck: Yes normal visual inspection Chest Other: Chest: tenderness and discomfort over the left 11th and 12th rib. No visible rash or bruising. Resp Effort & Inspection: normal respiratory effort Neuro General: patient oriented x3 Assessment & Plan Assessment & Plan (1) Contusion of rib on left side: Code(s): S20.212A - Contusion of left front wall of thorax, initial encounter Plan: X ray images personally revd by me. Her symptoms are due to a pulled muscle. however if there is any rash, she should return to the office to r/o shingles. Meloxicam and cyclobenzaprine called in. Orders: Orders XR ribs LT min 3V w CXR1V Today S20.212A - Contusion of left front wall of thorax, initial encounter Coding Level of Care Code Est Pt Level 4 (59629) Diagnoses Contusion of rib on left side S20.212A
[2024-01-25 08:39] VITALS: BP 150/80; PULSE 72; TEMP 36.4; O2SAT 96; BMI 27.9
== END 2024-01-25 09:52 | disposition home or self-care (01) ==
PROVIDERS: PCP Internal Medicine; Visit Provider Internal Medicine
DX: S20.212A Contusion of left front wall of thorax, initial encounter (principal)
CPT/HCPCS: 99214

== ENCOUNTER 2024-01-25 08:56 | Outpatient (REF) | payer OTHER, SELFPAY ==
--- NOTE | ~2024-01-25 | XR_ITS ---
EXAMINATION: XR RIBS, LEFT CLINICAL INFORMATION: Contusion of the left chest wall COMPARISON: CT angiogram chest 12/28/2022 and chest radiograph 10/10/2021 TECHNIQUE: 3 views of the left ribs were obtained along with a single view chest. FINDINGS: Bibasilar atelectasis is present, right greater than left. No consolidation, pneumothorax, or pleural effusion. The cardiomediastinal silhouette and pulmonary vasculature are normal. Osseous structures are unremarkable. Ribs are intact. No fractures are identified. XR/XR ribs LT min 3V w CXR1V IMPRESSION: No acute intrathoracic disease. No rib fractures are seen.
== END 2024-01-25 08:57 | disposition home or self-care (01) ==
LOC: HO.HMGCX 08:56
PROVIDERS: PCP Internal Medicine; Visit Provider Internal Medicine
DX: S20.212A Contusion of left front wall of thorax, initial encounter (principal)
CPT/HCPCS: 71101

== ENCOUNTER 2024-02-12 09:31 | Outpatient (REF) | payer OTHER, SELFPAY ==
[2024-02-12 11:02] LABS: MANUAL DIFF FLAG NO
[2024-02-12 11:21] LABS: Basophils Percent Auto 0.8 % (0-2); Eosinophils Absolute Auto 0.2 X10*3/uL (0.0-0.4); Eosinophils Percent Auto 4.3 % (0-4); Hemoglobin 15.5 g/dl (12.0-16.0); Imm Gran Abs Auto 0.01 X10*3/uL (0.00-0.03); Imm Gran Pct Auto 0.2 % (0.0-0.4); Lymphocytes Absolute Auto 1.8 X10*3/uL (1.2-4.9); Lymphocytes Percent Auto 36.7 % (20-40); Mean Corpuscular Hemoglobin 28.4 pg (27.0-33.0); Mean Corpuscular Volume 86.1 fL (80.0-98.0); Mean Platelet Volume 12.4 fL (9.4-12.3); Monocytes Absolute Auto 0.3 X10*3/uL (0.1-1.2); Monocytes Percent Auto 6.9 % (2-11); Neutrophils Absolute Auto 2.5 x10*3/uL (2.0-8.3); Neutrophils Percent Auto 51.1 % (45-73); Platelet Count 186 X10*3/uL (160-400); Red Blood Count 5.46 X10*6/uL (4.20-5.50); White Blood Count 4.9 X10*3/uL (4.8-10.8)
[2024-02-12 11:33] LABS: Estimated Average Glucose 120 mg/dL; Hemoglobin A1c % 5.8 % (<6.0)
[2024-02-12 11:59] LABS: Alanine Aminotransferase 26 U/L (0-31); Albumin Level 4.4 g/dL (3.5-5.0); Alkaline Phosphatase 70 U/L (39-117); Anion Gap 14 (12-20); Aspartate Amino Transferase 21 U/L (5-31); Bilirubin Total 0.5 mg/dL (0.0-1.0); Blood Urea Nitrogen 13 mg/dL (9-16); Calcium 9.8 mg/dL (8.4-10.2); Carbon Dioxide 28 mmol/L (22-29); Chloride 107 mmol/L (96-108); Cholesterol 196 mg/dL (<200); Estimated Glomerular Filt Rate > 60; Glucose Fasting 93 mg/dL (60-99); HDL Cholesterol 53 mg/dL (>40); LDL Cholesterol Calculated 101 mg/dL (<100); Potassium 4.3 mmol/L (3.3-5.1); Sodium 145 mmol/L (135-145); Total Protein 7.4 g/dL (6.5-8.0); Triglycerides 211 mg/dL (<150)
[2024-02-12 12:16] LABS: TSH reflex Free T4 1.25 uIU/mL (0.32-4.0)
== END 2024-02-12 09:32 | disposition home or self-care (01) ==
LOC: HO.HMGCLDS 09:31
PROVIDERS: PCP Internal Medicine; Visit Provider Internal Medicine
DX: E11.9 Type 2 diabetes mellitus without complications (principal); E78.5 Hyperlipidemia, unspecified; E03.9 Hypothyroidism, unspecified
CPT/HCPCS: 36415; 80053; 80061; 83036; 84443; 85025

== ENCOUNTER 2024-06-09 12:44 | Outpatient (AMB) | payer OTHER, SELFPAY ==
--- NOTE | 2024-06-09 12:53 | MHC.PC.OV ---
Vital Signs 06/09/24 12:54 Height 5 ft 4.3 in Weight 160 lb BMI 27.2 BP 128/80 Blood Pressure Location Rt brachial Position Sitting Pulse 80 Pulse Source Pulse Oximeter Pulse Oximetry (%) 96 Oxygen Delivery Method Room Air Intake Visit Reasons: 6 Months F/U Intake Note: Pt is here today for 6 months follow up visit. Allergies fluticasone furoate [From Breo Ellipta] Allergy (Verified 06/09/24 12:58) chest pressure and burning vilanterol [From Breo Ellipta] Allergy (Verified 06/09/24 12:58) chest pressure and burning Medication List - Last Reconciled 06/09/24 by Catherine James MD blood sugar diagnostic (FreeStyle Lite Strips) QD dulaglutide (Trulicity) 0.75 mg (0.5 mL) subcut QWEEK empagliflozin (Jardiance) 25 mg PO DAILY fluoxetine 20 mg PO DAILY levothyroxine 100 mcg PO DAILY metformin ER 2,000 mg (4 x 500 mg) PO DAILY nystatin 10 mL PO TID omeprazole 20 mg PO DAILY rosuvastatin 40 mg PO DAILY Tobacco use date assessed: 06/09/24 Dental Screening Dental Screen Date: 06/09/24 Did you have a dental visit in the last 12 months?: Yes Did you have a dental problem in the last 6 months where you did not have access to dental care?: No Was dental information given to patient?: Patient has dentist HPI 6 Months F/U HPI Details Patient presents for physical. Type 2 diabetes and hyperlipidemia are controlled on current medications. [facility] Medical History Asthma Abnormal stress test ZAMBRANO (dyspnea on exertion) Cough Chest tightness Annual physical exam Chest pain Arthralgia Osteopenia History of colon polyps Depression with anxiety Type 2 diabetes mellitus Hyperlipidemia Hypothyroidism Surgical History H/O colonoscopy Family History Father Hypertension Mother Diabetes Liver cancer Maternal Grandmother Diabetes Social History Household Members Other:: single, 3 adult children (2 in [place]) Housing: House Alcohol intake: never Patient Tobacco Use Status: Never used Tobacco e-Cigarette/Vaping Use: Never Used service: No Current occupational status: employed Cognitive needs: No Hearing needs: No Vision needs: Yes Questionnaire PHQ-9 Over the last 2 weeks, how often have you been bothered by any of the following problems? 1. Little interest or pleasure in doing things: not at all 2. Feeling down, depressed, or hopeless: not at all 3. Trouble falling or staying asleep, or sleeping too much: not at all 4. Feeling tired or having little energy: not at all 5. Poor appetite or overeating: not at all 6. Feeling bad about yourself - or that you are a failure or have let yourself or your family down: not at all 7. Trouble concentrating on things, such as reading the newspaper or watching television: not at all 8. Moving or speaking so slowly that other people could have noticed. Or the opposite - being so fidgety or restless that you have been moving around a lot more than usual: not at all 9. Thoughts that you would be better off or of hurting yourself in some way: not at all Total score: 0 Depression Screening Interpretation: Negative Depression Screening Done: Yes Source: Developed by Drs. Hosea Collins, Tricia Samuel, Nate Hale and colleagues, with an educational deisy from [employer]. Thrive Questionnaire Date Thrive assessed: 06/09/24 I am a: Patient What is your living situation today?: I have a steady place to live Within the past 12 months, did the food you bought not last and you didn't have the money to get more?: Never true Within the past 12 months, did you worry whether your food would run out before you got money to buy more?: Never true Do you have trouble paying for medicines?: No Do you have trouble getting transportation to medical appointments?: No Do you have trouble paying your heating and electricity bill?: No Do you have trouble taking care of your child, family member or friend?: No Do you have trouble with day-to-day activities such as bathing, preparing meals, shopping, managing finances, etc.?: No Are you currently unemployed and looking for a job?: No Are you interested in more education?: No Please select the resources that you would like help with: Housing/Half-Way Currently or been in a relationship where the following occur: I choose not to answer THRIVE Score: 0 AUDIT C Alcohol Use Questionnaire (AUDIT-C) 1. How often do you have a drink containing alcohol?: Never 3. How often do you have six or more drinks on one occasion?: Never Total Score: 0 VARUN-7 AMB Questionnaire VARUN-7 Date VARUN - 7 assessed: 06/09/24 Feeling nervous, anxious, or on edge: 0 = Not at all Not being able to stop or control worryin = Not at all Worrying too much about different things: 1 = Several days Trouble relaxin = Not at all Being so restless that it is hard to sit still: 0 = Not at all Becoming easily annoyed or irritable: 1 = Several days Feeling afraid as if something awful might happen: 0 = Not at all Total VARUN-7 score (0-4 normal; 5-9 mild; 10-14 moderate; 15-21 severe): 2 Source: Developed by Drs. Hosea Collins, Tricia Samuel, Nate Hale and colleagues, with an educational deisy from [employer]. Review of Systems Const All systems reviewed & are unremarkable except as noted in HPI and below ENT Reports no additional complaints Card Reports no additional complaints Resp Reports no additional complaints GI Reports no additional complaints Reports no additional complaints Physical exam (Primary Care) Vital Signs: Last Vital Signs Pulse 80 06/09/24 12:54 BP 128/80 06/09/24 12:54 Pulse Ox 96 06/09/24 12:54 Oxygen Delivery Method Room Air 06/09/24 12:54 BMI result Body Mass Index 27.2 Tobacco/Smoking Status: Tobacco use Status Tobacco use date assessed 06/09/24 06/09/24 13:00 Patient Tobacco Use Status Never used Tobacco 06/09/24 12:56 e-Cigarette/Vaping Use Never Used 06/09/24 12:56 PHQ-9: PHQ-9 Score PHQ-9: Total score 0 06/09/24 13:05 Depression Screening Interpretation: Negative Thrive Assessment: Date of Thrive Assessment Date Thrive assessed 06/09/24 06/09/24 13:00 Currently or been in a relationship where the following occur: I choose not to answer Const General: no acute distress HENMT Head: Yes normal to inspection Ears: hearing grossly normal bilaterally Mouth: Normal oral and palatal mucosa present Eyes General: appearance normal, both eyes and all related structures Neck Neck: Yes supple Resp Effort & Inspection: normal respiratory effort Auscultation: clear to auscultation bilaterally Cardio Rhythm: regular rhythm Heart sounds: S1 normal heart sound present and S2 normal heart sound present GI Inspection: Yes normal to inspection Palpation (GI): Soft to palpation Percussion: Yes normal to percussion Auscultation: normal bowel sounds Assessment and Plan Assessment & Plan (1) Type 2 diabetes mellitus: Code(s): E11.9 - Type 2 diabetes mellitus without complications Plan: A1c was 5.8, continue ADA diet current medications increase physical activity, follow-up in 6 months with a fasting labs before (2) Hypothyroidism: Code(s): E03.9 - Hypothyroidism, unspecified Plan: Continue levothyroxine check TSH (3) Hyperlipidemia: Code(s): E78.5 - Hyperlipidemia, unspecified Plan: Continue rosuvastatin (4) Annual physical exam: Code(s): Z00.00 - Encounter for general adult medical examination without abnormal findings Plan: Well-balanced diet regular physical activity discussed with the patient. She is up-to-date with the mammogram and had negative Cologuard last year Orders: Orders Complete Blood Count Auto Diff 6 Months E03.9 - Hypothyroidism, unspecified, E11.9 - Type 2 diabetes mellitus without complications, E78.5 - Hyperlipidemia, unspecified, Z00.00 - Encounter for general adult medical examination without abnormal findings TSH reflex Free T4 6 Months E03.9 - Hypothyroidism, unspecified, E11.9 - Type 2 diabetes mellitus without complications, E78.5 - Hyperlipidemia, unspecified, Z00.00 - Encounter for general adult medical examination without abnormal findings Lipid Panel 6 Months E03.9 - Hypothyroidism, unspecified, E11.9 - Type 2 diabetes mellitus without complications, E78.5 - Hyperlipidemia, unspecified, Z00.00 - Encounter for general adult medical examination without abnormal findings Hemoglobin A1c 6 Months E03.9 - Hypothyroidism, unspecified, E11.9 - Type 2 diabetes mellitus without complications, E78.5 - Hyperlipidemia, unspecified, Z00.00 - Encounter for general adult medical examination without abnormal findings Comprehensive [place]. Panel Fast 6 Months E03.9 - Hypothyroidism, unspecified, E11.9 - Type 2 diabetes mellitus without complications, E78.5 - Hyperlipidemia, unspecified, Z00.00 - Encounter for general adult medical examination without abnormal findings Microalbumin, Random (w Creat) 6 Months E03.9 - Hypothyroidism, unspecified, E11.9 - Type 2 diabetes mellitus without complications, E78.5 - Hyperlipidemia, unspecified, Z00.00 - Encounter for general adult medical examination without abnormal findings Medications: Changed From dulaglutide (Trulicity) 0.75 mg (0.5 mL) subcut QWEEK 6 mL 1RF To Trulicity (dulaglutide) 0.75 mg (0.5 mL) subcut QWEEK 2 mL 5RF NS Refilled empagliflozin (Jardiance) 25 mg PO DAILY 90 tabs 3RF rosuvastatin 40 mg PO DAILY 90 tabs 3RF levothyroxine 100 mcg PO DAILY 90 tabs 3RF metformin ER 2,000 mg (4 x 500 mg) PO DAILY 360 tabs 3RF Discontinued fluoxetine Discontinued Reason: Doctor's Order 20 mg PO DAILY 90 caps 3RF omeprazole Discontinued Reason: Doctor's Order 20 mg PO DAILY 90 caps 3RF Coding Level of Care Code Est Pt Prev Care 40-64y(11704) Diagnoses Type 2 diabetes mellitus E11.9 Hypothyroidism E03.9 Hyperlipidemia E78.5 Annual physical exam Z00.00
[2024-06-09 12:54] VITALS: BP 128/80; PULSE 80; O2SAT 96; BMI 27.2
== END 2024-06-09 13:25 | disposition home or self-care (01) ==
PROVIDERS: PCP Internal Medicine; Visit Provider Internal Medicine
DX: E11.9 Type 2 diabetes mellitus without complications (principal); E03.9 Hypothyroidism, unspecified; E78.5 Hyperlipidemia, unspecified; Z00.00 Encounter for general adult medical examination without abnormal findings
CPT/HCPCS: 99396

== ENCOUNTER 2025-01-20 08:54 | Outpatient (REF) | payer OTHER, SELFPAY ==
[2025-01-20 11:46] LABS: MANUAL DIFF FLAG NO
[2025-01-20 11:57] LABS: Basophils Absolute Auto 0.1 X10*3/uL (0.0-0.2); Basophils Percent Auto 0.7 % (0-2); Eosinophils Absolute Auto 0.2 X10*3/uL (0.0-0.4); Eosinophils Percent Auto 2.7 % (0-4); Hematocrit 45.4 % (37.0-47.0); Imm Gran Abs Auto 0.02 X10*3/uL (0.00-0.03); Imm Gran Pct Auto 0.3 % (0.0-0.4); Lymphocytes Absolute Auto 1.9 X10*3/uL (1.2-4.9); Lymphocytes Percent Auto 27.5 % (20-40); Mean Corpuscular Hemoglobin 28.5 pg (27.0-33.0); Mean Corpuscular Volume 86.3 fL (80.0-98.0); Monocytes Absolute Auto 0.6 X10*3/uL (0.1-1.2); Monocytes Percent Auto 8.4 % (2-11); Neutrophils Absolute Auto 4.2 x10*3/uL (2.0-8.3); Neutrophils Percent Auto 60.4 % (45-73); Platelet Count 182 X10*3/uL (160-400); Red Blood Count 5.26 X10*6/uL (4.20-5.50); Red Cell Distribution Width 12.7 % (11.0-16.0); White Blood Count 6.9 X10*3/uL (4.8-10.8)
[2025-01-20 12:24] LABS: Alanine Aminotransferase 19 U/L (0-31); Albumin Level 4.1 g/dL (3.5-5.0); Alkaline Phosphatase 74 U/L (39-117); Anion Gap 15 (12-20); Aspartate Amino Transferase 19 U/L (5-31); Bilirubin Total 0.5 mg/dL (0.0-1.0); Blood Urea Nitrogen 13 mg/dL (9-16); Calcium 9.5 mg/dL (8.4-10.2); Carbon Dioxide 25 mmol/L (22-29); Chloride 106 mmol/L (96-108); Cholesterol 178 mg/dL (<200); Estimated Glomerular Filt Rate > 60; Glucose Fasting 103 mg/dL (60-99); HDL Cholesterol 53 mg/dL (>40); LDL Cholesterol Calculated 98 mg/dL (<100); Potassium 4.2 mmol/L (3.3-5.1); Sodium 142 mmol/L (135-145); Total Protein 7.6 g/dL (6.5-8.0); Triglycerides 139 mg/dL (<150)
[2025-01-20 12:29] LABS: Creatinine Urine 75.76 mg/dL; Microalbum/Creatinine Ratio Ur 19.7 ug/mg cr (<30)
[2025-01-20 12:40] LABS: TSH reflex Free T4 1.48 uIU/mL (0.32-4.0)
[2025-01-20 12:41] LABS: Estimated Average Glucose 143 mg/dL; Hemoglobin A1C 186.7671 umol/L; Hemoglobin A1c % 6.6 % (<6.0); Total Hemoglobin (HGBA1C) 3867.5988 umol/L
== END 2025-01-20 08:55 | disposition home or self-care (01) ==
LOC: HO.HMGCLDS 08:54
PROVIDERS: PCP Internal Medicine; Visit Provider Internal Medicine
DX: Z00.00 Encounter for general adult medical examination without abnormal findings (principal); E11.9 Type 2 diabetes mellitus without complications; E03.9 Hypothyroidism, unspecified; E78.5 Hyperlipidemia, unspecified
CPT/HCPCS: 36415; 80053; 80061; 82043; 82570; 83036; 84443; 85025

== ENCOUNTER 2025-02-07 08:30 | Outpatient (AMB) | payer OTHER, SELFPAY ==
[2025-02-07 08:33] VITALS: BP 112/72; PULSE 77; RESP 18; TEMP 36.7; O2SAT 97; BMI 25.8
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
== END 2025-02-07 09:29 | disposition home or self-care (01) ==
LOC: HO.HMCC 08:30
PROVIDERS: PCP Internal Medicine; Visit Provider Internal Medicine
DX: E03.9 Hypothyroidism, unspecified (principal); E78.5 Hyperlipidemia, unspecified; E11.9 Type 2 diabetes mellitus without complications; Z00.00 Encounter for general adult medical examination without abnormal findings; R09.82 Postnasal drip

== ENCOUNTER → 2025-02-07 08:30 | Outpatient (BNVA) | payer OTHER, SELFPAY | PROVIDERS: PCP Internal Medicine; Visit Provider Internal Medicine | DX: Z00.00 Encounter for general adult medical examination without abnormal findings (principal); E03.9 Hypothyroidism, unspecified; E78.5 Hyperlipidemia, unspecified; E11.9 Type 2 diabetes mellitus without complications; R09.82 Postnasal drip; Z79.899 Other long term (current) drug therapy | CPT/HCPCS: 96127 ==

== ENCOUNTER 2025-05-05 08:51 | Outpatient (REF) | payer OTHER, SELFPAY ==
[2025-05-05 11:18] LABS: MANUAL DIFF FLAG NO
[2025-05-05 11:27] LABS: Basophils Absolute Auto 0.1 X10*3/uL (0.0-0.2); Basophils Percent Auto 0.9 % (0-2); Eosinophils Absolute Auto 0.1 X10*3/uL (0.0-0.4); Eosinophils Percent Auto 2.5 % (0-4); Hematocrit 46.5 % (37.0-47.0); Hemoglobin 15.5 g/dl (12.0-16.0); Imm Gran Abs Auto 0.01 X10*3/uL (0.00-0.03); Imm Gran Pct Auto 0.2 % (0.0-0.4); Lymphocytes Absolute Auto 2.3 X10*3/uL (1.2-4.9); Lymphocytes Percent Auto 40.4 % (20-40); Mean Corpuscular HGB Conc 33.3 g/dl (31.0-35.0); Mean Corpuscular Hemoglobin 29.1 pg (27.0-33.0); Mean Corpuscular Volume 87.2 fL (80.0-98.0); Mean Platelet Volume 12.6 fL (9.4-12.3); Monocytes Absolute Auto 0.4 X10*3/uL (0.1-1.2); Monocytes Percent Auto 7.4 % (2-11); Neutrophils Absolute Auto 2.7 x10*3/uL (2.0-8.3); Neutrophils Percent Auto 48.6 % (45-73); Platelet Count 177 X10*3/uL (160-400); Red Blood Count 5.33 X10*6/uL (4.20-5.50); Red Cell Distribution Width 12.6 % (11.0-16.0); White Blood Count 5.6 X10*3/uL (4.8-10.8)
[2025-05-05 11:51] LABS: Alanine Aminotransferase 45 U/L (0-31); Albumin Level 4.4 g/dL (3.5-5.0); Alkaline Phosphatase 67 U/L (39-117); Anion Gap 12 (12-20); Aspartate Amino Transferase 28 U/L (5-31); Bilirubin Total 0.4 mg/dL (0.0-1.0); Blood Urea Nitrogen 17 mg/dL (9-16); Calcium 9.6 mg/dL (8.4-10.2); Carbon Dioxide 26 mmol/L (22-29); Chloride 109 mmol/L (96-108); Cholesterol 180 mg/dL (<200); Estimated Glomerular Filt Rate > 60; Glucose Fasting 91 mg/dL (60-99); HDL Cholesterol 56 mg/dL (>40); LDL Cholesterol Calculated 97 mg/dL (<100); Potassium 4.7 mmol/L (3.3-5.1); Sodium 142 mmol/L (135-145); Triglycerides 135 mg/dL (<150)
[2025-05-05 11:56] LABS: Estimated Average Glucose 120 mg/dL; Hemoglobin A1c % 5.8 % (<6.0)
[2025-05-05 12:10] LABS: TSH reflex Free T4 0.32 uIU/mL (0.32-4.0)
[2025-05-05 12:11] LABS: Creatinine Urine 100.21 mg/dL; Microalbum/Creatinine Ratio Ur 7.9 ug/mg cr (<30)
== END 2025-05-05 08:52 | disposition home or self-care (01) ==
LOC: HO.HMGCLDS 08:51
PROVIDERS: PCP Internal Medicine; Visit Provider Internal Medicine
DX: Z00.00 Encounter for general adult medical examination without abnormal findings (principal); E78.5 Hyperlipidemia, unspecified; E03.9 Hypothyroidism, unspecified; E11.9 Type 2 diabetes mellitus without complications
CPT/HCPCS: 36415; 80053; 80061; 82043; 82570; 83036; 84443; 85025

== ENCOUNTER 2025-05-10 14:07 | Outpatient (AMB) | payer OTHER, SELFPAY ==
[2025-05-10 14:09] VITALS: BP 124/76; PULSE 92; RESP 18; TEMP 36.6; O2SAT 96; BMI 25.5
--- NOTE | 2025-05-10 14:09 | MHC.PC.OV ---
Vital Signs 05/10/25 14:09 Height 5 ft 4.3 in Weight 150 lb BMI 25.5 BP 124/76 Blood Pressure Location Lt brachial Position Sitting Respiration 18 Pulse 92 Pulse Source Pulse Oximeter Temp 97.8 F Temp Source Oral Pulse Oximetry (%) 96 Oxygen Delivery Method Room Air Intake Visit Reasons: 3m follow up Intake Note: Pt is here today for 3 months follow up visit. Allergies fluticasone furoate (From Breo Ellipta) Allergy (Verified 05/10/25 14:09) chest pressure and burning vilanterol (From Breo Ellipta) Allergy (Verified 05/10/25 14:09) chest pressure and burning Medication List - Last Reconciled 05/10/25 by Catherine James MD blood sugar diagnostic (FreeStyle Lite Strips) QD empagliflozin (Jardiance) 25 mg PO DAILY levothyroxine 100 mcg PO DAILY metformin ER 2,000 mg (4 x 500 mg) PO DAILY nystatin 10 mL PO TID rosuvastatin 40 mg PO DAILY Trulicity (dulaglutide) 0.75 mg (0.5 mL) subcut QWEEK NS Tobacco use date assessed: 05/10/25 Dental Screening Dental Screen Date: 02/07/25 HPI 3m follow up HPI Details Pt presents for f/u hyperlipid, DM 2, stable on meds. [facility] Medical History (Updated 05/10/25 @ 14:41 by Catherine James MD) Asthma ZAMBRANO (dyspnea on exertion) Cough Chest tightness Annual physical exam Chest pain Arthralgia Osteopenia History of colon polyps Depression with anxiety Type 2 diabetes mellitus Hyperlipidemia Hypothyroidism Surgical History H/O colonoscopy Family History Father Hypertension Mother Diabetes Liver cancer Maternal Grandmother Diabetes Social History Household Members Other:: single, 3 adult children (2 in [place]) Housing: House Alcohol intake: never Patient Tobacco Use Status: Never used Tobacco e-Cigarette/Vaping Use: Never Used service: No Current occupational status: employed Cognitive needs: No Hearing needs: No Vision needs: Yes Questionnaire Thrive Questionnaire Date Thrive assessed: 02/07/25 VARUN-7 AMB Questionnaire VARUN-7 Date VARUN - 7 assessed: 02/07/25 Source: Developed by Drs. Hosea Collins, Tricia Samuel, Nate Hale and colleagues, with an educational deisy from [employer]. Review of Systems Const All systems reviewed & are unremarkable except as noted in HPI and below Eyes Reports no additional complaints ENT Reports no additional complaints Card Reports no additional complaints Resp Reports no additional complaints GI Reports no additional complaints Reports no additional complaints Physical exam (Primary Care) Vital Signs: Last Vital Signs Temp 97.8 F 05/10/25 14:09 Pulse 92 05/10/25 14:09 Resp 18 05/10/25 14:09 BP 124/76 05/10/25 14:09 Pulse Ox 96 05/10/25 14:09 Oxygen Delivery Method Room Air 05/10/25 14:09 BMI result Body Mass Index 25.5 Tobacco/Smoking Status: Tobacco use Status Tobacco use date assessed 05/10/25 05/10/25 14:10 Patient Tobacco Use Status Never used Tobacco 05/10/25 14:10 e-Cigarette/Vaping Use Never Used 05/10/25 14:09 Thrive Assessment: Date of Thrive Assessment Date Thrive assessed 02/07/25 05/10/25 14:09 Const General: no acute distress HENMT Head: Yes normal to inspection General nose exam: Normal external nose present Face and sinus: Yes normal facial exam Mouth: Normal oral and palatal mucosa present Throat: Yes posterior oropharynx normal Eyes General: appearance normal, both eyes and all related structures Neck Neck: Yes no lymphadenopathy and Yes supple Resp Effort & Inspection: normal respiratory effort Auscultation: clear to auscultation bilaterally Cardio Rhythm: regular rhythm Heart sounds: S1 normal heart sound present and S2 normal heart sound present GI Inspection: Yes normal to inspection Palpation (GI): Soft to palpation Percussion: Yes normal to percussion Auscultation: normal bowel sounds Coding Level of Care Code Est Pt Level 4 (10790) Diagnoses Type 2 diabetes mellitus E11.9 Hypothyroidism E03.9 Hyperlipidemia E78.5 Assessment & Plan Assessment & Plan (1) Type 2 diabetes mellitus: Code(s): E11.9 - Type 2 diabetes mellitus without complications Category: Medical Plan: A1c is 5.8, continue ADA diet regular physical activity current medications follow-up in 4 months with a fasting labs before (2) Hypothyroidism: Code(s): E03.9 - Hypothyroidism, unspecified Category: Medical Plan: Continue levothyroxine (3) Hyperlipidemia: Code(s): E78.5 - Hyperlipidemia, unspecified Category: Medical Plan: Continue statin Orders: Orders Complete Blood Count Auto Diff 4 Months E03.9 - Hypothyroidism, unspecified, E11.9 - Type 2 diabetes mellitus without complications, E78.5 - Hyperlipidemia, unspecified Hemoglobin A1c 4 Months E03.9 - Hypothyroidism, unspecified, E11.9 - Type 2 diabetes mellitus without complications, E78.5 - Hyperlipidemia, unspecified Comprehensive [place]. Panel Fast 4 Months E03.9 - Hypothyroidism, unspecified, E11.9 - Type 2 diabetes mellitus without complications, E78.5 - Hyperlipidemia, unspecified Lipid Panel 4 Months E03.9 - Hypothyroidism, unspecified, E11.9 - Type 2 diabetes mellitus without complications, E78.5 - Hyperlipidemia, unspecified Microalbumin, Random (w Creat) 4 Months E03.9 - Hypothyroidism, unspecified, E11.9 - Type 2 diabetes mellitus without complications, E78.5 - Hyperlipidemia, unspecified Medications: Refilled levothyroxine 100 mcg PO DAILY 90 tabs 3RF rosuvastatin 40 mg PO DAILY 90 tabs 3RF empagliflozin (Jardiance) 25 mg PO DAILY 90 tabs 3RF metformin ER 2,000 mg (4 x 500 mg) PO DAILY 360 tabs 3RF
== END 2025-05-10 15:07 | disposition home or self-care (01) ==
LOC: HO.HMCC 14:07
PROVIDERS: PCP Internal Medicine; Visit Provider Internal Medicine
DX: E11.9 Type 2 diabetes mellitus without complications (principal); E03.9 Hypothyroidism, unspecified; E78.5 Hyperlipidemia, unspecified

== ENCOUNTER → 2025-05-10 14:07 | Outpatient (BNVA) | payer OTHER, SELFPAY | PROVIDERS: PCP Internal Medicine; Visit Provider Internal Medicine ==

== ENCOUNTER 2025-09-08 08:59 | Outpatient (REF) | payer OTHER, SELFPAY ==
[2025-09-08 11:26] LABS: MANUAL DIFF FLAG NO
[2025-09-08 11:35] LABS: Hematocrit 47.0 % (37.0-47.0); Hemoglobin 15.5 g/dl (12.0-16.0); Imm Gran Abs Auto 0.04 X10*3/uL (0.00-0.03); Imm Gran Pct Auto 0.7 % (0.0-0.4); Lymphocytes Absolute Auto 2.4 X10*3/uL (1.2-4.9); Mean Corpuscular HGB Conc 33.0 g/dl (31.0-35.0); Mean Corpuscular Hemoglobin 28.2 pg (27.0-33.0); Mean Corpuscular Volume 85.6 fL (80.0-98.0); NRBC Abs Auto 0.000 X10*3/uL (0.0-0.012); NRBC Pct Auto 0.0 /100WBC (0.0-0.2); Platelet Count 199 X10*3/uL (160-400); Red Blood Count 5.49 X10*6/uL (4.20-5.50); White Blood Count 5.8 X10*3/uL (4.8-10.8)
[2025-09-08 11:56] LABS: Alanine Aminotransferase 43 U/L (0-31); Albumin Level 4.6 g/dL (3.5-5.0); Alkaline Phosphatase 70 U/L (39-117); Anion Gap 14 (12-20); Aspartate Amino Transferase 31 U/L (5-31); Blood Urea Nitrogen 16 mg/dL (9-16); Calcium 9.1 mg/dL (8.4-10.2); Carbon Dioxide 24 mmol/L (22-29); Chloride 107 mmol/L (96-108); Cholesterol 170 mg/dL (<200); Estimated Glomerular Filt Rate > 60; HDL Cholesterol 53 mg/dL (>40); Potassium 4.1 mmol/L (3.3-5.1); Sodium 141 mmol/L (135-145); Total Protein 7.1 g/dL (6.5-8.0); Triglycerides 167 mg/dL (<150)
[2025-09-08 12:08] LABS: Microalbum/Creatinine Ratio Ur 11.3 ug/mg cr (<30)
== END 2025-09-08 09:00 | disposition home or self-care (01) ==
LOC: HO.HMGCLDS 08:59
PROVIDERS: PCP Internal Medicine; Visit Provider Internal Medicine
DX: E11.9 Type 2 diabetes mellitus without complications (principal); E03.9 Hypothyroidism, unspecified; E78.5 Hyperlipidemia, unspecified
CPT/HCPCS: 36415; 80053; 80061; 82043; 82570; 83036; 85025